=== PATIENT | male | born 1985 | race Caucasian/White ===

== ENCOUNTER 2018-11-23 08:38 | Emergency (ER) | payer SELFPAY ==
[~2018-11-23] VITALS: Ht 182.9 cm; Wt 99.8 kg
[~2018-11-23 08:38] MED LIST: AMOX500C2 PO; CYCL10TA9 PO; HYDR-2890 PO; HYDR1TAB PO; IBP800T PO; NAPR550T PO; PRD50T PO; TRAM50TA2 PO; TRM50T PO
[2018-11-23] MEDS ORDERED: HYDROcodone/APAP 5 MG/325 MG (LORTAB) TAB PO ONE (11:00)
[2018-11-23] MEDS ORDERED: CYCLOBENZAPRINE 10 MG (FLEXERIL) TAB PO SCH (11:00)
[2018-11-23] MEDS ORDERED: KETOROLAC 60 MG/2 ML VIAL IM ONE (11:00)
--- NOTE | 2018-11-23 11:21 | ED Back Pain ---
General Chief Complaint: Back Problems Stated Complaint: L LEG PAIN Nursing Triage Note: Pt c/o R lower hip/back pain with pain shooting down R leg x1 week. Pt reports being seen by chiropractor and at ED in [place]. Pt was given prednisone and pain medication w/ no relief. Nursing Sepsis Screen: No Definite Risk Source of Information: Patient Exam Limitations: No Limitations History of Present Illness Date Seen by Provider: Nov 23, 2018 Time Seen by Provider: 10:56 Initial Comments 32-year-old male who presents to the emergency room with complaints of right lower hip pain that shoots down his right leg for the past week. He has been seen by a chiropractor and lumbar and was seen and evaluated in the emergency room at [facility] and was given prednisone and muscle relaxers but has had no improvement of pain. He reports that he was at work this morning when his pain became worse. He denies loss of bowel or bladder, saddle paresthesia, or recent injury. Location: Lumbar Spine Timing/Duration: 1 Week Modifying Factors: Worse With Movement Associated Symptoms: lower back pain Allergies and Home Medications Allergies Coded Allergies: No Known Drug Allergies (Unverified , 06/04/11) Home Medications Cyclobenzaprine HCl 10 Mg Tablet, 10 MG PO Q8H PRN for SPASMS Prescribed by: VALDO MARTINEZ on 11/23/18 1149 Hydrocodone Bit/Acetaminophen 1 Tab Tab, 1 EACH PO Q4-6HR PRN for PAIN-MODERATE Prescribed by: VALDO MARTINEZ on 11/23/18 1149 Tramadol Hcl 50 Mg Tablet, 50 MG PO Q4H PRN for PAIN Prescribed by: EVGENY BROOKS on 02/24/14 1406 Patient Home Medication List Home Medication List Reviewed: Yes Review of Systems Constitutional: see HPI; No chills, No fever Musculoskeletal: see HPI, joint pain (right hip pain) All Other Systems Reviewed Negative Unless Noted: Yes Past Ecywuyb-Rtfodh-Njmnbm Hx Past Med/Social Hx: Reviewed Nursing Past Med/Soc Hx Patient Social History Alcohol Use: Denies Use Recreational Drug Use: No Smoking Status: Never a Smoker Type Used: Smokeless Tobacco Recent Foreign Travel: No Contact w/Someone Who Travel: No Recent Infectious Disease Expo: No Recent Hopitalizations: No Immunizations Up To Date Tetanus Booster (TDap): Less than 5yrs Date of Influenza Vaccine: Mar 28, 2012 Seasonal Allergies Seasonal Allergies: No Past Medical History Surgeries: Yes (L5-S1) Respiratory: No Cardiac: No Neurological: No Reproductive Disorders: No Sexually Transmitted Disease: No HIV/AIDS: No Gastrointestinal: No Musculoskeletal: Yes (R ANKLE) Fractures Endocrine: No HEENT: No Cancer: No Psychosocial: No Integumentary: No Blood Disorders: No Adverse Reaction/Blood Tranf: No Family Medical History Reviewed Nursing Family Hx No Pertinent Family Hx Physical Exam Vital Signs Vital Signs - First Documented 11/23/18 09:48 Temp 97.9 Pulse 87 Resp 18 B/P (MAP) 124/97 (106) Pulse Ox 98 O2 Delivery Room Air Capillary Refill : Less Than 3 Seconds Height, Weight, BMI Height: 6'0" Weight: 220lbs. oz. 99.521543mb; 29.83 BMI Method:Stated General Appearance: No Apparent Distress, WD/WN Cardiovascular: Regular Rate, Rhythm, No Edema, No Gallop, No JVD, No Murmur, Normal Peripheral Pulses Respiratory: Chest Non Tender, Lungs Clear, Normal Breath Sounds, No Accessory Muscle Use, No Respiratory Distress, Accessory Muscle Use Back: Normal Inspection, No CVA Tenderness, No Vertebral Tenderness Extremity: Normal Capillary Refill Neurologic/Psychiatric: Alert, Oriented x3, Normal Mood/Affect Skin: Normal Color, Warm/Dry Progress/Results/Core Measures Results/Orders My Orders Orders - VALDO MARTINEZ Cyclobenzaprine Tablet (Flexeril Tablet) (11/23/18 11:00) Ketorolac Injection (Toradol Injection) (11/23/18 11:00) Hydrocodone/Apap 5/325 Tablet (Lortab 5 (11/23/18 11:00) Medications Given in ED Vital Signs/I&O 11/23/18 11/23/18 09:48 11:54 Temp 97.9 98.6 Pulse 87 88 Resp 18 16 B/P (MAP) 124/97 (106) 170/80 (110) Pulse Ox 98 97 O2 Delivery Room Air Blood Pressure Mean: 106 Progress Progress Note : Time: 11:47 Progress Note I have seen and evaluated the patient. His pain has improved at this time. He agrees with plan of care, plans for discharge, plans for follow-up, return precautions were given. Departure Impression Primary Impression: Sciatic nerve pain Disposition: 01 HOME, SELF-CARE Condition: Stable/Unchanged Departure-Patient Inst. Decision time for Depature: 11:47 Referrals: NO,LOCAL PHYSICIAN (PCP/Family) Primary Care Physician Patient Instructions: Sciatica Exercises, Sciatica Add. Discharge Instructions: Take medications as directed. Follow-up with your primary care provider within 1 week for recheck. Return back to the emergency room for worsening symptoms or concerns as needed. All discharge instructions reviewed with patient and/or family. Voiced understanding. Scripts Hydrocodone Bit/Acetaminophen (Hydrocodone/Acetaminophen 5/325mg Tablet) 1 Tab Tab 1 EACH PO Q4-6HR PRN for PAIN-MODERATE MDD 10, #10 TAB Prov: VALDO MARTINEZ 11/23/18 Cyclobenzaprine HCl (Cyclobenzaprine HCl) 10 Mg Tablet 10 MG PO Q8H PRN for SPASMS, #15 TAB 0 Refills Prov: VALDO MARTINEZ 11/23/18 VALDO MARTINEZ Nov 23, 2018 11:21
[2018-11-23] MEDS ORDERED: CYCL10TA9 PO (11:49)
[2018-11-23] MEDS ORDERED: ACHD5005 PO (11:49)
[2018-11-23 11:54] VITALS: BP 170/80
== END 2018-11-23 11:56 | disposition home or self-care (01) ==
LOC: ER 08:38 → EDUNIT# 08:38 → ER 11:56
DX: M54.41 Lumbago with sciatica, right side (principal); Z98.1 Arthrodesis status

== ENCOUNTER 2018-12-03 16:27 | Emergency (ER) | payer BC, OTHER ==
[~2018-12-03] VITALS: Ht 182.9 cm; Wt 104.3 kg
[~2018-12-03 16:27] MED LIST changes: +ACHD5005 PO
--- OUTSIDE RECORDS SUMMARY | 2018-12-03 16:32 | XMS REPORT | Continuity of Care Document ---
Author Organization Unknown Address Unknown Allergies Active Description Code Type Severity Reaction Onset Reported/Identified Relationship to Patient Clinical Status Yes No Known Drug Allergies [id number] Drug Allergy Unknown N/A 06/04/2011 Medications There is no data. Problems Date Dx Coded Attending Type Code Diagnosis Diagnosed By 06/04/2011 Ot 831.04 06/04/2011 Ot 959.2 06/04/2011 Ot E000.8 06/04/2011 Ot E007.0 06/04/2011 Ot E849.4 06/04/2011 Ot E917.0 06/23/2011 Ot 521.00 06/23/2011 Ot 525.9 09/13/2011 Ot 521.00 09/13/2011 Ot 525.9 01/05/2012 Ot 521.00 01/05/2012 Ot 525.9 07/20/2012 Ot 724.1 07/20/2012 Ot 847.1 07/20/2012 Ot E000.8 07/20/2012 Ot E849.0 07/20/2012 Ot E927.0 02/01/2013 EVGENY MAGAÑA Ot 840.9 02/01/2013 EVGENY MAGAÑA Ot 959.2 02/01/2013 EVGENY MAGAÑA Ot E000.8 02/01/2013 EVGENY MAGAÑA Ot E005.3 02/01/2013 EVGENY MAGAÑA Ot E849.0 02/01/2013 EVGENY MAGAÑA Ot E884.9 02/24/2014 EVGENY MAGAÑA Ot 923.10 02/24/2014 EVGENY MAGAÑA Ot 959.3 02/24/2014 EVGENY MAGAÑA Ot E000.8 02/24/2014 EVGENY MAGAÑA Ot E849.0 02/24/2014 EVGENY MAGAÑA Ot E917.9 02/24/2014 EVGENY MAGAÑA Ot W51.xxxA 02/24/2014 EVGENY MAGAÑA Ot Y92.099 Procedures There is no data. Results There is no data. Encounters ACCT No. Visit Date/Time Discharge Status Pt. Type Provider Facility Loc./Unit Complaint [id number] 02/24/2014 13:20:00 02/24/2014 14:25:00 DIS Emergency EVGENY MAGAÑA [facility] [id number] 02/01/2013 20:27:00 02/01/2013 22:15:00 DIS Emergency EVGENY MAGAÑA [facility] ER [id number] 07/20/2012 10:17:00 Document Registration [id number] 01/05/2012 00:12:00 Document Registration [id number] 09/13/2011 20:23:00 Document Registration [id number] 06/23/2011 18:57:00 Document Registration [id number] 06/04/2011 19:09:00 Document Registration
[2018-12-03 16:53] LABS: BILIRUBIN,URINE NEGATIVE (NEGATIVE); CLARITY,URINE SLIGHTLY CLOUDY; COLOR,URINE YELLOW; GLUCOSE, URINE (UA) NEGATIVE (NEGATIVE); KETONES,URINE NEGATIVE (NEGATIVE); LEUKOCYTE ESTERASE ,URINE NEGATIVE (NEGATIVE); NITRITE,URINE NEGATIVE (NEGATIVE); PH,URINE 8 (5-9); PROTEIN,URINE NEGATIVE (NEGATIVE); UROBILINOGEN,URINE NORMAL (NORMAL)
--- NOTE | 2018-12-03 16:58 | ED Back Pain ---
General Chief Complaint: Back Problems Stated Complaint: LOWER BACK PAIN Nursing Triage Note: low back pain worsening in the last few days. denies numbness or tingling. denies loss of bowel or bladder. pt denies any initial injury. pt history of L5-S1 surgery. Nursing Sepsis Screen: No Definite Risk Source of Information: Patient, Old Records Exam Limitations: No Limitations History of Present Illness Date Seen by Provider: December 03, 2018 Time Seen by Provider: 16:40 Initial Comments This 32-year-old woman presents to the emergency room with complaints of lower back pain, more predominant on the right. This is in the SI joint region. He has had problems with back pain in the past and has had surgery at L5-S1. He was seen in the ER on November 23 for similar symptoms. He was treated with Toradol, Norflex, and hydrocodone. He had a couple days of relief after that. Pain returned and became more intensely exacerbated over the past 2 or 3 days. He also complains of pain now radiating into the testicle on the right. The testicles also tender to the touch. He denies any saddle paresthesia. He has had some darker urine recently as well. He has no history of kidney stones. He took ibuprofen 800 mg around noon which did not improve his pain. On his prior visit he had sciatic symptoms down the right leg. Those are absent today. 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 He denies any abdominal pain. He denies dysuria or penile drainage. He does have some urinary hesitance. Allergies and Home Medications Allergies Coded Allergies: No Known Drug Allergies (Unverified , 06/04/11) Home Medications Cyclobenzaprine HCl 10 Mg Tablet, 10 MG PO Q8H PRN for SPASMS Prescribed by: VALDO MARTINEZ on 11/23/18 1149 Cyclobenzaprine HCl 10 Mg Tablet, 10 MG PO Q8H PRN for SPASMS Prescribed by: DALE FLYNN on 12/03/18 1756 Hydrocodone Bit/Acetaminophen 1 Tab Tab, 1 EACH PO Q4-6HR PRN for PAIN-MODERATE Prescribed by: VALDO MARTINEZ on 11/23/18 1149 Oxycodone HCl/Acetaminophen 1 Each Tablet, 1-2 TAB PO Q4H PRN for PAIN-MODERATE TO SEVERE Prescribed by: DALE FLYNN on 12/03/181755 Prednisone 20 Mg Tab, 40 MG PO DAILY Prescribed by: DALE FLYNN on 12/03/181755 Tramadol Hcl 50 Mg Tablet, 50 MG PO Q4H PRN for PAIN Prescribed by: EVGENY BROOKS on 02/24/14 1406 Patient Home Medication List Home Medication List Reviewed: Yes Review of Systems Constitutional: no symptoms reported EENTM: no symptoms reported Respiratory: no symptoms reported Cardiovascular: no symptoms reported Gastrointestinal: no symptoms reported Genitourinary: see HPI Musculoskeletal: see HPI Skin: no symptoms reported Psychiatric/Neurological: No Symptoms Reported Past Nxhnjwx-Fpzvya-Wagoyq Hx Past Med/Social Hx: Reviewed and Corrections made Patient Social History Alcohol Use: Denies Use Recreational Drug Use: No Type Used: Smokeless Tobacco Recent Foreign Travel: No Contact w/Someone Who Travel: No Recent Infectious Disease Expo: No Recent Hopitalizations: No Immunizations Up To Date Tetanus Booster (TDap): Less than 5yrs Date of Influenza Vaccine: Mar 28, 2012 Seasonal Allergies Seasonal Allergies: No Past Medical History Surgeries: Yes (L5-S1) Orthopedic Respiratory: No Cardiac: No Neurological: No Reproductive Disorders: No Sexually Transmitted Disease: No HIV/AIDS: No Genitourinary: No Gastrointestinal: No Musculoskeletal: Yes (R ANKLE) Chronic Back Pain, Fractures Endocrine: No HEENT: No Cancer: No Psychosocial: No Integumentary: No Blood Disorders: No Adverse Reaction/Blood Tranf: No Family Medical History No Pertinent Family Hx Physical Exam Vital Signs Vital Signs - First Documented 12/03/18 16:32 Temp 98.4 Pulse 82 Resp 16 B/P (MAP) 160/91 (114) Pulse Ox 97 O2 Delivery Room Air Capillary Refill : Less Than 3 Seconds Height, Weight, BMI Height: 6'0" Weight: 230lbs. oz. 104.136661qc; 29.83 BMI Method:Stated General Appearance: WD/WN, Moderate Distress HEENT: PERRL/EOMI, Normal ENT Inspection Neck: Normal Inspection Cardiovascular: Regular Rate, Rhythm, No Edema, No Murmur Respiratory: Lungs Clear, Normal Breath Sounds, No Accessory Muscle Use, No Respiratory Distress Gastrointestinal: Normal Bowel Sounds, Non Tender, Soft Genital/Rectal: Normal Genital Exam, Tenderness (right testicle) Back: Other (surgical scar over L5. Minimal tenderness in the right SI region. ) Neurologic/Psychiatric: Alert, Oriented x3, No Motor/Sensory Deficits, Normal Mood/Affect, magnetic resonance technologist II-XII Norm as Tested Skin: Normal Color, Warm/Dry Progress/Results/Core Measures Results/Orders Lab Results Laboratory Tests Test 12/03/18 16:47 Range/Units Urine Color YELLOW Urine Clarity SLIGHTLY CLOUDY Urine pH 8 5-9 Urine Specific [place] 1.010 L 1.016-1.022 Urine Protein NEGATIVE NEGATIVE Urine Glucose (UA) NEGATIVE NEGATIVE Urine Ketones NEGATIVE NEGATIVE Urine Nitrite NEGATIVE NEGATIVE Urine Bilirubin NEGATIVE NEGATIVE Urine Urobilinogen NORMAL NORMAL MG/DL Urine Leukocyte Esterase NEGATIVE NEGATIVE Urine RBC (Auto) NEGATIVE NEGATIVE Urine RBC RARE /HPF Urine WBC 0-2 /HPF Urine Crystals PRESENT H /LPF Urine Amorphous Sediment LARGE REYNA PHOSPHATE H /LPF Urine Bacteria NEGATIVE /HPF Urine Casts NONE /LPF Urine Mucus NEGATIVE /LPF Urine Culture Indicated NO My Orders Orders - DALE DIAZ MD Ua Culture If Indicated (12/03/18 16:40) Us Scrotum (Testicle) [id number] (12/03/18 16:47) Ketorolac Injection (Toradol Injection) (12/03/18 17:00) Tramadol Tablet (Ultram Tablet) (12/03/18 18:00) Medications Given in ED Current Medications Medications Dose Ordered Sig/Lamine Route Start Time Stop Time Status Last Admin Dose Admin Ketorolac Tromethamine 30 mg ONCE ONCE IM 12/03/18 17:00 12/03/18 17:01 DC 12/03/18 16:54 30 MG Tramadol HCl 50 mg ONCE ONCE PO 12/03/18 18:00 12/03/18 18:01 DC 12/03/18 18:06 50 MG Vital Signs/I&O 12/03/18 12/03/18 16:32 18:17 Temp 98.4 98.6 Pulse 82 86 Resp 16 18 B/P (MAP) 160/91 (114) 148/99 (115) Pulse Ox 97 98 O2 Delivery Room Air Blood Pressure Mean: 114 Progress Progress Note #1: Time: 16:58 Progress Note Patient seen and examined. Toradol ordered for treatment of pain. UA and scrotal ultrasound are pending. Progress Note #2: Time: 18:15 Progress Note Scrotal ultrasound was unremarkable. Urine showed no evidence of infection or hematuria to suggest kidney stone. Patient states this pain feels very similar to when he required surgery. Toradol was given but did not really improve his pain. Ultram was given prior to departure. I suspect the scrotal pain is radicular in nature. I asked him to elaborate on his urinary hesitance. He states it is only a few seconds of hesitance and he is able to empty out his entire bladder. Diagnostic Imaging Diagonstic Imaging: Ultrasound Plain Films/CT/US/NM/MRI: other (scrotum) Comments NAME: KYLER STACY MED REC#: [id number] PT STATUS: REG ER : 1985 PHYSICIAN: DALE DIAZ MD ADMIT DATE: 12/03/18/ER Draft Date of Exam:12/03/18 US SCROTUM (Testicle) [id number] INDICATION: Pain COMPARISON: None available TECHNIQUE: Scrotal ultrasound with duplex interrogation was performed on 12/03/2018. FINDINGS: The right testicle measures 4.8 x 2.1 x 3.6 cm. The left testicle measures 5.0 x 2.6 x 3.3 cm. The bilateral testicles maintain a homogeneous echotexture without intratesticular mass. Symmetric vascular flow noted within the bilateral testicles. The bilateral epididymides unremarkable. No significant hydrocele or varicocele. IMPRESSION: Unremarkable examination. Dictated on workstation # [id number] Dict: 12/03/18 1725 Trans: 12/03/18 1729 [facility] [id number] Interpreted by: KRISTIN JENNINGS MD Departure Impression Primary Impression: Low back pain Qualified Codes: M54.5 - Low back pain Additional Impression: Pain in scrotum or testicle Disposition: 01 HOME, SELF-CARE Condition: Stable Departure-Patient Inst. Referrals: NO,LOCAL PHYSICIAN (PCP/Family) Primary Care Physician Patient Instructions: Low Back Pain in Adults Add. Discharge Instructions: Take ibuprofen up to 600 mg every 6 hours as needed for pain. Add Percocet for pain not controlled by ibuprofen. Use cyclobenzaprine as prescribed for muscle spasms. Use prednisone as prescribed to help reduce inflammation. Take it early in the day with food or milk to avoid sleep and stomach problems. Take your first dose of prednisone tonight. Return to the ER if you have worsening symptoms, especially if you develop weakness in your legs, numbness or tingling in your genital area, intensifying pain despite treatment, difficulty controlling your bowels or your bladder, etc. Gentle heat on your lower back may be helpful. Call your spine surgeon tomorrow morning for follow-up as soon as possible. All discharge instructions reviewed with patient and/or family. Voiced understanding. Scripts Prednisone (Prednisone) 20 Mg Tab 40 MG PO DAILY, #8 TAB 0 Refills Prov: DALE DIAZ MD 12/03/18 Oxycodone HCl/Acetaminophen (Percocet 5-325 mg Tablet) 1 Each Tablet 1-2 TAB PO Q4H PRN for PAIN-MODERATE TO SEVERE MDD 6 TABS, #20 TAB Prov: DALE DIAZ MD 12/03/18 Cyclobenzaprine HCl (Cyclobenzaprine HCl) 10 Mg Tablet 10 MG PO Q8H PRN for SPASMS, #20 TAB 0 Refills Prov: DALE DIAZ MD 12/03/18 Work/School Note: Work Release Form Date Seen in the Emergency Department: December 03, 2018 Return to Work: December 07, 2018 Other Restrictions Listed Below: Increase level of activity as pain allows. Reduce lifting/pulling if pain Copy Copies To 1: AKBAR BURNETT MD, JOSHUA T MD December 03, 2018 16:58
[2018-12-03 17:00] LABS: BACTERIA,URINE NEGATIVE /HPF; RBC,URINE RARE /HPF; WBC,URINE 0-2 /HPF
[2018-12-03] MEDS ORDERED: KETOROLAC 30 MG/ML VIAL IM ONE (17:00)
[2018-12-03 17:01] LABS: AMORPHOUS SEDIMENT,UR LARGE AMOR PHOSPHATE /LPF
--- NOTE | 2018-12-03 17:29 | Diagnostic Imaging Report ---
INDICATION: Pain COMPARISON: None available TECHNIQUE: Scrotal ultrasound with duplex interrogation was performed on 12/03/2018. FINDINGS: The right testicle measures 4.8 x 2.1 x 3.6 cm. The left testicle measures 5.0 x 2.6 x 3.3 cm. The bilateral testicles maintain a homogeneous echotexture without intratesticular mass. Symmetric vascular flow noted within the bilateral testicles. The bilateral epididymides unremarkable. No significant hydrocele or varicocele. IMPRESSION: Unremarkable examination. Dictated by: Dictated on workstation # [id number]
[2018-12-03] MEDS ORDERED: CYCL10TA9 PO (17:56)
[2018-12-03] MEDS ORDERED: PRD20T PO (17:56)
[2018-12-03] MEDS ORDERED: OXYC1TAB87 PO (17:56)
[2018-12-03 18:17] VITALS: BP 148/99
== END 2018-12-03 18:18 | disposition home or self-care (01) ==
LOC: EDUNIT# 16:27 → ER 16:28
DX: M54.5 Low back pain (principal); N50.82 Scrotal pain; Z79.52 Long term (current) use of systemic steroids
CPT/HCPCS: 76870; 81000; 96372

== ENCOUNTER 2019-06-28 16:15 | Emergency (ER) | payer BC ==
[~2019-06-28] VITALS: Ht 182 cm; Wt 98.7 kg
[~2019-06-28 16:15] MED LIST changes: +OXYC1TAB87 PO; +PRD20T PO
[2019-06-28] MEDS ORDERED: HYDROcodone/APAP 5 MG/325 MG (LORTAB) TAB PO ONE (17:45)
[2019-06-28] MEDS ORDERED: ORPHENADRINE 60 MG/2 ML (NORFLEX) AMP IM ONE (17:45)
--- NOTE | 2019-06-28 17:47 | ED Back Pain ---
General Chief Complaint: Back Problems Stated Complaint: BACK PAIN Nursing Triage Note: Patient ambulatory to ER FT1 with complaint of lower back pain on the right side radiating into to the right leg. Patient complains of numbness to right toes. Patient states two weeks ago he injured his back while lifting heavy cinder blocks. He states he took off several weeks from work and has been taking Naproxen and applying ice and heat without relief. Patient has a previous history of back surgery at [facility] for herniated disks. Nursing Sepsis Screen: No Definite Risk History of Present Illness Date Seen by Provider: Jun 28, 2019 Time Seen by Provider: 17:20 Initial Comments 33-year-old male presents for a 2 week history of back and right leg pain. The patient was lifting bricks in his backyard, had immediate onset of low back pain. He tried a two-week bed rest and limited activity taking Naprosyn and Tylenol with no improvement in his symptoms. He's been trying heat and ice on his back with no improvement. He's had previous surgery on the lumbar spine by Dr. Mehta approximately 4 years ago at L5-S1. He denies any bowel or bladder retention or incontinence. Today he has had ibuprofen 800 mg twice. He rates his pain at a 9/10. 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 Location: Lumbar Spine Timing/Duration: Other (2 weeks) Associated Symptoms: muscle spasms, tingling in legs/feet (Right toes), lower back pain; No loss of bladder control, No loss of bowel control Allergies and Home Medications Allergies Coded Allergies: No Known Drug Allergies (Unverified , 06/04/11) Home Medications Cyclobenzaprine HCl 10 Mg Tablet, 10 MG PO Q8H PRN for SPASMS Prescribed by: VALDO MARTINEZ on 11/23/18 1149 Cyclobenzaprine HCl 10 Mg Tablet, 10 MG PO Q8H PRN for SPASMS Prescribed by: DALE FLYNN on 12/03/18 1756 Cyclobenzaprine HCl 10 Mg Tablet, 10 MG PO Q8H PRN for SPASMS Prescribed by: BELEN DE LA ROSA on 06/28/19 1839 Hydrocodone Bit/Acetaminophen 1 Tab Tab, 1 EACH PO Q4-6HR PRN for PAIN-MODERATE Prescribed by: VALDO MARTINEZ on 11/23/18 1149 Hydrocodone Bit/Acetaminophen 1 Tab Tab, 1 EACH PO Q6H PRN for PAIN-MODERATE Prescribed by: BELEN DE LA ROSA on 06/28/191818 Oxycodone HCl/Acetaminophen 1 Each Tablet, 1-2 TAB PO Q4H PRN for PAIN-MODERATE TO SEVERE Prescribed by: DALE FLYNN on 12/03/181755 Prednisone 20 Mg Tab, 40 MG PO DAILY Prescribed by: DALE FLYNN on 12/03/181755 Prednisone 20 Mg Tab, 40 MG PO DAILY Prescribed by: BELEN DE LA ROSA on 06/28/191818 Tramadol Hcl 50 Mg Tablet, 50 MG PO Q4H PRN for PAIN Prescribed by: EVGENY BROOKS on 02/24/14 1406 Patient Home Medication List Home Medication List Reviewed: Yes Review of Systems Constitutional: no symptoms reported, see HPI Musculoskeletal: see HPI, back pain All Other Systems Reviewed Negative Unless Noted: Yes Past Ialdwms-Cypchl-Twraan Hx Past Med/Social Hx: Reviewed Nursing Past Med/Soc Hx Patient Social History Alcohol Use: Rarely Uses Recreational Drug Use: No Smoking Status: Current Everyday Smoker Type Used: Cigarettes, Smokeless Tobacco 2nd Hand Smoke Exposure: Yes Recent Foreign Travel: No Contact w/Someone Who Travel: No Recent Infectious Disease Expo: No Recent Hopitalizations: No Physical Abuse: No Sexual Abuse: No Mistreated: No Fear: No Immunizations Up To Date Tetanus Booster (TDap): Less than 5yrs PED Vaccines UTD: Yes Date of Influenza Vaccine: Mar 28, 2012 Seasonal Allergies Seasonal Allergies: No Past Medical History Surgeries: Yes (L5-S1) Orthopedic Respiratory: No Cardiac: No Neurological: No Reproductive Disorders: No Sexually Transmitted Disease: No HIV/AIDS: No Genitourinary: No Gastrointestinal: No Musculoskeletal: Yes (R ANKLE) Chronic Back Pain, Fractures Endocrine: No HEENT: No Cancer: No Psychosocial: No Integumentary: No Blood Disorders: No Adverse Reaction/Blood Tranf: No Family Medical History No Pertinent Family Hx Physical Exam Vital Signs Vital Signs - First Documented 06/28/19 16:32 Temp 36.8 Pulse 87 Resp 20 B/P (MAP) 118/84 (95) Pulse Ox 99 O2 Delivery Room Air Capillary Refill : Less Than 3 Seconds Height, Weight, BMI Height: 6'0" Weight: 230lbs. oz. 104.168669qt; 29.00 BMI Method:Stated General Appearance: No Apparent Distress, WD/WN Neck: Full Range of Motion, Normal Inspection, Non Tender, Supple Cardiovascular: Regular Rate, Rhythm, No Edema, No Murmur, Normal Peripheral Pulses Respiratory: Chest Non Tender, Lungs Clear Back: Normal Inspection, No Vertebral Tenderness, Decreased Range of Motion (secondary to pain.), Muscle Spasm, Other (well-healed lumbar incision with no erythema or warmth. Decreased range of motion to the lumbar spine secondary to pain. Ambulates with a slightly antalgic gait secondary to back pain. Able to rise on to toes and he'll ambulate. Power V/V left L4-S1, Power IV/V L5-S1 right and V/V right L4. Positive SLR. ) Extremity: Normal Capillary Refill, Normal Inspection, Normal Range of Motion, No Calf Tenderness Neurologic/Psychiatric: Alert, Oriented x3, No Motor/Sensory Deficits Skin: Normal Color, Warm/Dry Progress/Results/Core Measures Results/Orders My Orders Orders - BELEN DE LA ROSA Lumbar Spine - 2-3 Views (06/28/19 17:42) Orphenadrine Injection (Norflex Injectio (06/28/19 17:45) Hydrocodone/Apap 5/325 Tablet (Lortab 5 (06/28/19 17:45) Medications Given in ED Current Medications Medications Dose Ordered Sig/Lamine Route Start Time Stop Time Status Last Admin Dose Admin Acetaminophen/ Hydrocodone Bitart 1 tab ONCE ONCE PO 06/28/19 17:45 06/28/19 17:46 DC 06/28/19 18:01 1 TAB Orphenadrine Citrate 60 mg ONCE ONCE IM 06/28/19 17:45 06/28/19 17:46 DC 06/28/19 18:02 60 MG Vital Signs/I&O 06/28/19 06/28/19 16:32 18:28 Temp 36.8 36.8 Pulse 87 87 Resp 20 20 B/P (MAP) 118/84 (95) 118/84 (95) Pulse Ox 99 99 O2 Delivery Room Air Blood Pressure Mean: 95 POS Progress Progress Note : Time: 17:20 Progress Note Patient seen and evaluated, will obtain x-rays and Norflex 60 mg IM for muscle spasms and hydrocodone/APAP 5/325 mg for pain. 181 patient reports some improvement in his pain. X-ray results reviewed with him. Discharge instructions and return precautions reviewed with the patient. All questions answered. Diagnostic Imaging Diagonstic Imaging: Xray Plain Films/CT/US/NM/MRI: other (lumbar spine) Comments NAME: KYLER STACY [facility] REC#: [id number] PT STATUS: REG ER : 1985 PHYSICIAN: BELEN DE LA ROSA ADMIT DATE: 06/28/19/ER Draft POSDate of Exam:06/28/19 LUMBAR SPINE - 2-3 VIEWS Clinical indications: Patient with low back pain radiating down right leg after injury while working in yard approximately 2 weeks ago. Patient has history of L5-S1 surgery approximately 6 years ago. Exam: X-ray of the lumbar spine, 3 views. Comparison: None. Findings: There is mild right curvature of the lumbar spine. There is no acute lumbar spine fracture. There appears to be mild grade 1 retrolisthesis of L5 on S1 but no pars defect is seen. There is at least moderate loss of intervertebral disc height at the L5-S1 level and mild to moderate loss of intervertebral disk height at the L4-L5 level. There is lower lumbar spine facet arthropathy. Sacroiliac joints are unremarkable. Impression: 1. There is no acute lumbar spine fracture or dislocation. 2: There is mild to moderate loss of intervertebral disc height at the L4-L5 and L5-S1 levels. If there is concern for disc herniation, then MRI of the lumbar spine would better evaluate. 3: There appears to be subtle grade 1 retrolisthesis of L5 on S1. Dictated on workstation # [id number] Dict: 06/28/19 1755 Trans: 06/28/19 1806 [facility] [id number] Interpreted by: MIRANDA MCKEE MD Electronically signed by: Departure Impression Primary Impression: Lumbar back pain Additional Impression: Lumbosacral radiculopathy at L5 Disposition: 01 HOME, SELF-CARE Condition: Improved Departure-Patient Inst. Decision time for Depature: 18:15 Referrals: NO,LOCAL PHYSICIAN (PCP/Family) Primary Care Physician Patient Instructions: Lumbar Muscle Strain (DC), Radiculopathy (DC) Add. Discharge Instructions: Continue to alternate heat and ice to your low back. Call for follow-up appointment with Dr. Mehta. See your primary care provider if symptoms worsen. Take Naprosyn 500 mg twice daily with food, use Hydrocodone/APAP for severe pain. Do not take tylenol while taking the hydrocodone/apap, as there is tylenol in this medication. Take Prednisone as directed. Apply Biofreeze or [place] to low back. Return to the emergency department for urinary or bowel incontinence or rete ntion, new acute back injuries, or other emergency concerns. All discharge instructions reviewed with patient and/or family. Voiced understanding. Scripts Cyclobenzaprine HCl (Cyclobenzaprine HCl) 10 Mg Tablet 10 MG PO Q8H PRN for SPASMS, #15 TAB 0 Refills Prov: BELEN DE LA ROSA 06/28/19 Prednisone (Prednisone) 20 Mg Tab 40 MG PO DAILY, #8 TAB 0 Refills Prov: BELEN DE LA ROSA 06/28/19 Hydrocodone Bit/Acetaminophen (Hydrocodone/Acetaminophen 5/325mg Tablet) 1 Tab Tab 1 EACH PO Q6H PRN for PAIN-MODERATE MDD 10, #20 TAB 0 Refills Prov: BELEN DE LA ROSA 06/28/19 Work/School Note: Work Release Form Date Seen in the Emergency Department: Jun 28, 2019 Return to Work: Jul 05, 2019 Restrictions: Need Release from Doctor Other Restrictions Listed Below: Needs to See Dr. Mehta. Copy Copies To 1: AKBAR MEHTA MD, AMY ARNP Jun 28, 2019 17:46 POS
--- NOTE | 2019-06-28 18:07 | Diagnostic Imaging Report ---
Clinical indications: Patient with low back pain radiating down right leg after injury while working in yard approximately 2 weeks ago. Patient has history of L5-S1 surgery approximately 6 years ago. Exam: X-ray of the lumbar spine, 3 views. Comparison: None. Findings: There is mild right curvature of the lumbar spine. There is no acute lumbar spine fracture. There appears to be mild grade 1 retrolisthesis of L5 on S1 but no pars defect is seen. There is at least moderate loss of intervertebral disc height at the L5-S1 level and mild to moderate loss of intervertebral disk height at the L4-L5 level. There is lower lumbar spine facet arthropathy. Sacroiliac joints are unremarkable. Impression: 1. There is no acute lumbar spine fracture or dislocation. 2: There is mild to moderate loss of intervertebral disc height at the L4-L5 and L5-S1 levels. If there is concern for disc herniation, then MRI of the lumbar spine would better evaluate. 3: There appears to be subtle grade 1 retrolisthesis of L5 on S1. Dictated by: Dictated on workstation # [id number]
[2019-06-28] MEDS ORDERED: PRD20T PO (18:19)
[2019-06-28] MEDS ORDERED: ACHD5005 PO (18:19)
[2019-06-28 18:28] VITALS: BP 118/84
--- NOTE | 2019-06-28 18:31 | NUR ---
Patient asked if prescription for Prednisone be called in to [facility]. Prescription called to Yolanda at [facility]. Patient states his pain has improved since the hydrocodone and IM med given.
[2019-06-28] MEDS ORDERED: CYCL10TA9 PO (18:39)
== END 2019-06-28 18:30 | disposition home or self-care (01) ==
LOC: EDUNIT# 16:15 → ER 16:16
DX: M54.17 Radiculopathy, lumbosacral region (principal); F17.210 Nicotine dependence, cigarettes, uncomplicated; Z79.52 Long term (current) use of systemic steroids; X50.1XXA Overexertion from prolonged static or awkward postures, initial encounter
CPT/HCPCS: 72100; 96372

== ENCOUNTER 2019-09-15 09:29 | Emergency (ER) | payer BC ==
[~2019-09-15] VITALS: Ht 182 cm; Wt 97.8 kg
[2019-09-15] MEDS ORDERED: ONDANSETRON 4 MG/2 ML (SDV) Z0FRAN IVP ONE (09:45)
--- NOTE | 2019-09-15 09:46 | ED Abdominal Pain ---
General Chief Complaint: Abdominal/GI Problems Stated Complaint: ABD PAIN Nursing Triage Note: ARRIVED VIA AMB TO ROOM 07 WITH COMPLAINTS OF LEFT SIDED ABD PAIN STARTING AT 0100. Sepsis Screen: No Definite Risk Source of Information: Patient Exam Limitations: No Limitations History of Present Illness Date Seen by Provider: Sep 15, 2019 Time Seen by Provider: 09:29 Initial Comments The patient presents to ER by private conveyance from work with chief complaint he woke up about 1 or 2 in the morning with some rumbling in his left side of his belly and intermittent, colicky pain. He says the pain is not worse with the drive. He says it is about a 6 out of 10 right now comes and goes. He has not taken anything for the pain. He had some loose watery stools without blood in it. Has some nausea but no vomiting. He has no history of abdominal surgeries or trauma. No fevers chills. Does not follow with a doctor take any medications or have any significant medical history that he is aware of. No cough shortness of breath. Allergies and Home Medications Allergies Coded Allergies: No Known Drug Allergies (Unverified , 06/04/11) Home Medications Ondansetron 4 Mg Tab.rapdis, 4 MG PO Q6H PRN for NAUSEA/VOMITING Prescribed by: MAHAD SIN on 09/15/19 1049 Patient Home Medication List Home Medication List Reviewed: Yes Review of Systems Review of Systems Constitutional: No chills, No diaphoresis EENTM: No Blurred Vision, No Double Vision Respiratory: Denies Cough, Denies Shortness of Air Gastrointestinal: Denies Abdomen Distended, Denies Abdominal Pain Genitourinary: Denies Burning, Denies Discharge Musculoskeletal: No back pain, No joint pain Skin: No pruritus, No rash Psychiatric/Neurological: Denies Anxiety, Denies Depressed, Denies Headache All Other Systems Reviewed Negative Unless Noted: Yes Past Xxydxfq-Uqwdoo-Qviowt Hx Patient Social History Alcohol Use: Denies Use Recreational Drug Use: No Smoking Status: Current Everyday Smoker Type Used: Cigarettes (pack per day), Smokeless Tobacco 2nd Hand Smoke Exposure: Yes Recent Foreign Travel: No Contact w/Someone Who Travel: No Recent Infectious Disease Expo: No Recent Hopitalizations: No Immunizations Up To Date Tetanus Booster (TDap): Less than 5yrs PED Vaccines UTD: Yes Date of Influenza Vaccine: Mar 28, 2012 Seasonal Allergies Seasonal Allergies: No Past Medical History Surgeries: Yes (L5-S1) Orthopedic Respiratory: No Cardiac: No Neurological: No Reproductive Disorders: No Sexually Transmitted Disease: No HIV/AIDS: No Genitourinary: No Gastrointestinal: No Musculoskeletal: Yes (R ANKLE) Chronic Back Pain, Fractures Endocrine: No HEENT: No Cancer: No Psychosocial: No Integumentary: No Blood Disorders: No Adverse Reaction/Blood Tranf: No Family Medical History No Pertinent Family Hx Physical Exam Vital Signs Vital Signs - First Documented 09/15/19 09:33 Temp 36.6 Pulse 93 Resp 16 B/P (MAP) 132/89 (103) Pulse Ox 97 O2 Delivery Room Air Capillary Refill : Less Than 3 Seconds Height/Weight/BMI Height: 6'0" Weight: 230lbs. oz. 104.532133mf; 29.00 BMI Method:Stated General Appearance: WD/WN, mild distress HEENT: PERRL/EOMI, pharynx normal Respiratory: lungs clear, normal breath sounds, no respiratory distress, no accessory muscle use Cardiovascular: normal peripheral pulses, regular rate, rhythm Peripheral Pulses: 2+ Radial Pulses (R), 2+ Radial Pulses (L) Gastrointestinal: normal bowel sounds, soft; No rebound; tenderness (. Mild left lower quadrant tenderness), other (negative for Rovsing sign, psoas sign or Anton's sign. No pain or rebound tenderness over McBurney's point. Negative for mesenteric signs.) Extremities: normal range of motion, normal inspection, normal capillary refill Neurologic/Psychiatric: alert, normal mood/affect, oriented x 3 Skin: normal color, warm/dry Progress/Results/Core Measures Results/Orders Lab Results Laboratory Tests Test 09/15/19 10:00 09/15/19 10:12 Range/Units Urine Color YELLOW Urine Clarity CLEAR Urine pH 5.5 5-9 Urine Specific [place] 1.025 H 1.016-1.022 Urine Protein NEGATIVE NEGATIVE Urine Glucose (UA) NEGATIVE NEGATIVE Urine Ketones NEGATIVE NEGATIVE Urine Nitrite NEGATIVE NEGATIVE Urine Bilirubin NEGATIVE NEGATIVE Urine Urobilinogen 0.2 < = 1.0 MG/DL Urine Leukocyte Esterase NEGATIVE NEGATIVE Urine RBC (Auto) NEGATIVE NEGATIVE Urine RBC 0-2 /HPF Urine WBC RARE /HPF Urine Squamous Epithelial Cells NONE /HPF Urine Crystals NONE /LPF Urine Bacteria NEGATIVE /HPF Urine Casts NONE /LPF Urine Mucus SMALL H /LPF Urine Culture Indicated NO White Blood Count 11.9 H 4.3-11.0 10^3/uL Red Blood Count 4.99 4.35-5.85 10^6/uL Hemoglobin 15.4 13.3-17.7 G/DL Hematocrit 44 40-54 % Mean Corpuscular Volume 89 80-99 FL Mean Corpuscular Hemoglobin 31 25-34 PG Mean Corpuscular Hemoglobin Concent 35 32-36 G/DL Red Cell Distribution Width 12.6 10.0-14.5 % Platelet Count 278 130-400 10^3/uL Mean Platelet Volume 10.9 H 7.4-10.4 FL Neutrophils (%) (Auto) 78 H 42-75 % Lymphocytes (%) (Auto) 12 12-44 % Monocytes (%) (Auto) 9 0-12 % Eosinophils (%) (Auto) 1 0-10 % Basophils (%) (Auto) 0 0-10 % Neutrophils # (Auto) 9.3 H 1.8-7.8 X 10^3 Lymphocytes # (Auto) 1.4 1.0-4.0 X 10^3 Monocytes # (Auto) 1.1 H 0.0-1.0 X 10^3 Eosinophils # (Auto) 0.1 0.0-0.3 10^3/uL Basophils # (Auto) 0.0 0.0-0.1 10^3/uL Sodium Level 140 135-145 MMOL/L Potassium Level 4.3 3.6-5.0 MMOL/L Chloride Level 106 98-107 MMOL/L Carbon Dioxide Level 22 21-32 MMOL/L Anion Gap 12 5-14 MMOL/L Blood Urea Nitrogen 14 7-18 MG/DL Creatinine 0.96 0.60-1.30 MG/DL Estimat Glomerular Filtration Rate > 60 BUN/Creatinine Ratio 15 Glucose Level 98 70-105 MG/DL Calcium Level 9.4 8.5-10.1 MG/DL Corrected Calcium 9.1 8.5-10.1 MG/DL Total Bilirubin 0.5 0.1-1.0 MG/DL Aspartate Amino Transf (AST/SGOT) 19 5-34 U/L Alanine Aminotransferase (ALT/SGPT) 23 0-55 U/L Alkaline Phosphatase 92 40-136 U/L C-Reactive Protein High Sensitivity 0.39 0.00-0.50 MG/DL Total Protein 7.3 6.4-8.2 GM/DL Albumin 4.4 3.2-4.5 GM/DL Lipase 17 8-78 U/L My Orders Orders - MAHAD SIN Ua Culture If Indicated (09/15/19 09:40) Ondansetron Injection (Zofran Injectio (09/15/19 09:45) Cbc With Automated Diff (09/15/19 09:40) Comprehensive Metabolic Panel (09/15/19 09:40) Hs C Reactive Protein (09/15/19 09:40) Lipase (09/15/19 09:40) Ed Iv/Invasive Line Start (09/15/19 09:51) Ns Iv 1000 Ml (Sodium Chloride 0.9%) (09/15/19 09:51) Ketorolac Injection (Toradol Injection) (09/15/19 10:45) Fentanyl Injection (Sublimaze Injection (09/15/19 11:30) Ct Abdomen/Pelvis W (09/15/19 11:16) Iohexol Injection (Omnipaque 350 Mg/Ml 1 (09/15/19 11:30) Received Contrast (Hold Metformin- Contr (09/15/19 11:30) Ns (Ivpb) (Sodium Chloride 0.9% Ivpb Bag (09/15/19 11:30) Medications Given in ED Current Medications Medications Dose Ordered Sig/Lamine Route Start Time Stop Time Status Last Admin Dose Admin Fentanyl Citrate 50 mcg ONCE ONCE IVP 09/15/19 11:30 09/15/19 11:31 DC 09/15/19 11:59 50 MCG Iohexol 100 ml ONCE ONCE IV 09/15/19 11:30 09/15/19 11:31 DC 09/15/19 12:26 99 ML Ketorolac Tromethamine 30 mg ONCE ONCE IVP 09/15/19 10:45 09/15/19 10:46 DC 09/15/19 10:51 30 MG Ondansetron HCl 4 mg ONCE ONCE IVP 09/15/19 09:45 09/15/19 09:46 DC 09/15/19 10:07 4 MG Sodium Chloride 100 ml ONCE ONCE IV 09/15/19 11:30 09/15/19 11:31 DC 09/15/19 12:26 80 ML Vital Signs/I&O 09/15/19 09:33 Temp 36.6 Pulse 93 Resp 16 B/P (MAP) 132/89 (103) Pulse Ox 97 O2 Delivery Room Air Blood Pressure Mean: 103 Progress Progress Note #1: Time: 10:03 Progress Note Benign abdominal exam. Vital signs are normal but heart rate is in the 90s. No cough or a story symptoms to suggest influenza. Most likely would be a viral gastroenteritis. We'll obtain some basic labs and urinalysis to rule out a more dangerous pathology such as bacterial colitis, appendicitis, etc. Progress Note #2: Time: 10:45 Progress Note The patient requested something for pain so we gave him 30 mg of Toradol IV. He does have a slowly mounting marginal white count with left shift giving him an Michaud score of 4 points. Still suspect since this is early that this is more likely a viral gastroenteritis and we will recommend watchful waiting with treatment of symptoms unless his pain is not controlled with Toradol. CRP may not elevate for the first 12 hours of a significant bacterial infection. Michaud score 4 points; Unlikely appendicitis by the Michaud Score. Progress Note #3: Time: 11:21 Progress Note After the Toradol the patient's pain has not improved. His nausea is gone. Similar abdominal exam with tenderness in the left lower quadrant and left upper quadrant. Plan on obtaining a CT with IV contrast given him 50 g of fentanyl IV. Progress Note #4: Time: 12:44 Progress Note Repeat examination the patient's pain is nearly gone. He has a benign abdominal exam. CT is unremarkable. We have given him return precautions. Diagnostic Imaging Diagonstic Imaging: CT Plain Films/CT/US/NM/MRI: abdomen, pelvis Comments NAME: KYLER STACY [facility] REC#: [id number] PT STATUS: REG ER : 1985 PHYSICIAN: MAHAD SIN MD ADMIT DATE: 09/15/19/ER Signed Date of Exam:09/15/19 CT ABDOMEN/PELVIS W PROCEDURE: CT abdomen and pelvis with contrast. TECHNIQUE: Multiple contiguous axial images were obtained through the abdomen and pelvis after administration of intravenous contrast. Auto Exposure Controls were utilized during the CT exam to meet ALARA standards for radiation dose reduction. INDICATION: Left upper quadrant pain and diarrhea Lung bases are clear. Liver appears normal. Gallbladder is present. Pancreas is normal. Spleen is not enlarged. Kidneys and adrenals appear normal. Large and small small intestine appear normal. The appendix is normal. There is no intraperitoneal free air or free fluid. Urinary bladder is normal. IMPRESSION: Negative CT abdomen and pelvis Dictated by: Dictated on workstation # [id number] Dict: 09/15/19 1233 Trans: 09/15/19 1235 TB [id number] Interpreted by: JOEL LOZANO MD Electronically signed by: JOEL LOZANO MD 09/15/19 1235 Reviewed: Reviewed by Me Departure Impression Primary Impression: Gastroenteritis and colitis, viral Disposition: HOME, SELF-CARE Condition: Stable Departure-Patient Inst. Decision time for Depature: 12:39 Referrals: NO,LOCAL PHYSICIAN (PCP/Family) Primary Care Physician Patient Instructions: Viral Gastroenteritis, Adult (DC) Add. Discharge Instructions: Drink plenty of fluids. Ondansetron under the tongue every 6 hours as needed for nausea or vomiting. Do not use any Imodium, loperamide or other antidiarrheals for the first 24-48 hours. Afterwards if you're still having diarrhea or having difficulty keeping fluids in faster than you're losing it then it would be reasonable to start with 2 tablets of loperamide followed by one tablet every 4 hours afterwards if you're still having watery, loose stools. If your symptoms persist for more than 3-5 days then you should follow-up with the primary care doctor. If you have uncontrollable pain, fever or nausea then you should return to the nearest ER. All discharge instructions reviewed with patient and/or family. Voiced understanding. Scripts Ondansetron (Ondansetron Odt) 4 Mg Tab.rapdis 4 MG PO Q6H PRN for NAUSEA/VOMITING, #12 TAB 0 Refills Prov: MAHAD SIN 09/15/19 Work/School Note: Work Release Form Date Seen in the Emergency Department: Sep 15, 2019 Return to Work: Sep 17, 2019 Restrictions: No Restrictions MAHAD SIN Sep 15, 2019 09:46
[2019-09-15] MEDS ORDERED: NS IV 1000 ML 1,000 ML IV SCH (09:51)
[2019-09-15 10:10] LABS: BILIRUBIN,URINE NEGATIVE (NEGATIVE); CLARITY,URINE CLEAR; COLOR,URINE YELLOW; GLUCOSE, URINE (UA) NEGATIVE (NEGATIVE); KETONES,URINE NEGATIVE (NEGATIVE); LEUKOCYTE ESTERASE ,URINE NEGATIVE (NEGATIVE); NITRITE,URINE NEGATIVE (NEGATIVE); PH,URINE 5.5 (5-9); PROTEIN,URINE NEGATIVE (NEGATIVE)
[2019-09-15 10:17] LABS: BASOPHILS % (AUTO) 0 % (0-10); EOSINOPHILS # (AUTO) 0.1 10^3/uL (0.0-0.3); EOSINOPHILS % (AUTO) 1 % (0-10); HEMATOCRIT 44 % (40-54); HEMOGLOBIN 15.4 G/DL (13.3-17.7); LYMPHOCYTES # (AUTO) 1.4 X 10^3 (1.0-4.0); LYMPHOCYTES % (AUTO) 12 % (12-44); MEAN CORPUSCULAR HEMOGLOBIN 31 PG (25-34); MEAN CORPUSCULAR HGB CONC 35 G/DL (32-36); MEAN CORPUSCULAR VOLUME 89 FL (80-99); MEAN PLATELET VOLUME 10.9 FL (7.4-10.4); MONOCYTES # (AUTO) 1.1 X 10^3 (0.0-1.0); MONOCYTES % (AUTO) 9 % (0-12); NEUTROPHILS # (AUTO) 9.3 X 10^3 (1.8-7.8); NEUTROPHILS % (AUTO) 78 % (42-75); PLATELET COUNT 278 10^3/uL (130-400); RED CELL DISTRIBUTION WIDTH 12.6 % (10.0-14.5); WHITE BLOOD COUNT 11.9 10^3/uL (4.3-11.0)
[2019-09-15 10:23] LABS: BACTERIA,URINE NEGATIVE /HPF; RBC,URINE 0-2 /HPF; WBC,URINE RARE /HPF
[2019-09-15 10:42] LABS: ALANINE AMINOTRANSFERASE 23 U/L (0-55); ALBUMIN 4.4 GM/DL (3.2-4.5); ALKALINE PHOSPHATASE 92 U/L (40-136); BILIRUBIN,TOTAL 0.5 MG/DL (0.1-1.0); BUN/CREATININE RATIO 15; CALCIUM 9.4 MG/DL (8.5-10.1); CARBON DIOXIDE 22 MMOL/L (21-32); CHLORIDE 106 MMOL/L (98-107); CREATININE SERUM 0.96 MG/DL (0.60-1.30); GFR ESTIMATED > 60; GLUCOSE 98 MG/DL (70-105); LIPASE 17 U/L (8-78); POTASSIUM 4.3 MMOL/L (3.6-5.0); SODIUM 140 MMOL/L (135-145); TOTAL PROTEIN 7.3 GM/DL (6.4-8.2)
[2019-09-15] MEDS ORDERED: KETOROLAC 30 MG/ML VIAL IVP ONE (10:45)
[2019-09-15] MEDS ORDERED: ONDA4TAB11 PO (10:49)
[2019-09-15] MEDS ORDERED: fentaNYL INJECTION 100 MCG/2 ML AMP IVP ONE (11:30)
[2019-09-15] MEDS ORDERED: HOLD METFORMIN - RECEIVED CONTRAST 20 ML VIAL IV SCH (11:30)
[2019-09-15] MEDS ORDERED: NS 100 ML (IVPB) BAG IV ONE (11:30)
[2019-09-15] MEDS ORDERED: IOHEXOL 350 MG/ML 100 ML (OMNIPAQUE 350) VIAL IV ONE (11:30)
--- NOTE | 2019-09-15 12:33 | NUR ---
PT REPORTS FEELING BETTER AFTER THE FENTENYL.
--- NOTE | 2019-09-15 12:37 | Diagnostic Imaging Report ---
PROCEDURE: CT abdomen and pelvis with contrast. TECHNIQUE: Multiple contiguous axial images were obtained through the abdomen and pelvis after administration of intravenous contrast. Auto Exposure Controls were utilized during the CT exam to meet ALARA standards for radiation dose reduction. INDICATION: Left upper quadrant pain and diarrhea Lung bases are clear. Liver appears normal. Gallbladder is present. Pancreas is normal. Spleen is not enlarged. Kidneys and adrenals appear normal. Large and small small intestine appear normal. The appendix is normal. There is no intraperitoneal free air or free fluid. Urinary bladder is normal. IMPRESSION: Negative CT abdomen and pelvis Dictated by: Dictated on workstation # [id number]
[2019-09-15 12:51] VITALS: BP 132/88
== END 2019-09-15 12:51 | disposition home or self-care (01) ==
LOC: EDUNIT# 09:29 → ER 09:30
DX: A08.4 Viral intestinal infection, unspecified (principal); F17.210 Nicotine dependence, cigarettes, uncomplicated; F17.290 Nicotine dependence, other tobacco product, uncomplicated
CPT/HCPCS: 36415; 74177; 80053; 81000; 83690; 85025; 86141

== ENCOUNTER 2020-02-29 08:12 | Emergency (ER) | payer BC ==
[~2020-02-29] VITALS: Ht 182.8 cm; Wt 95.0 kg
[~2020-02-29 08:12] MED LIST changes: +ONDA4TAB11 PO
--- NOTE | 2020-02-29 08:40 | ED Back Pain ---
General Stated Complaint: LOWER BACK SPASMS Source of Information: Patient Exam Limitations: No Limitations (MAHAD SIN) History of Present Illness Date Seen by Provider: Feb 29, 2020 Time Seen by Provider: 08:29 Initial Comments Archie Fenton is a 34 year old male seen due to chief complaint of low back pain. He describes the pain as a spasm that radiates up his L flank. Began yesterday while at work and worsened throughout the day, Tylenol, (MAHAD SIN) Initial Comments icy hot did not improve pain. Reports he had L5-S1 herniation diagnosed 6 months ago, saw Dr. Mehta and elected not to pursue surgical treatment. Has not had significant muscle spasms since then until now, has had muscle spasms in the past that responded to muscle relaxants. Denies having any issues with muscle weakness, urinary or bowel incontinence, numbness, or tingling. He has had shooting pains down his legs, but this is a chronic problem. Location: Lumbar Spine Timing/Duration: 1 Day Severity: Mild Pain/Injury Location: Back Radiation: Other (left flank) Associated Symptoms: muscle spasms; No weakness, No numbness in legs/feet, No tingling in legs/feet, No sensory/motor loss; lower back pain; No loss of bladder control, No loss of bowel control (ROMA LEE STUDENT) Allergies and Home Medications Allergies Coded Allergies: No Known Drug Allergies (Unverified , 06/04/11) Home Medications Cyclobenzaprine HCl 10 Mg Tablet, 10 MG PO Q8H PRN for SPASMS Prescribed by: MAHAD SIN on 02/29/20 0845 Naproxen 500 Mg Tablet, 500 MG PO BID Prescribed by: MAHAD SIN on 02/29/20 0845 Ondansetron 4 Mg Tab.rapdis, 4 MG PO Q6H PRN for NAUSEA/VOMITING Prescribed by: MAHAD SIN on 09/15/19 1049 Patient Home Medication List Home Medication List Reviewed: Yes (MAHAD SIN) Review of Systems Constitutional: No chills, No diaphoresis EENTM: No hearing loss, No ear pain Respiratory: No cough, No short of breath Cardiovascular: No chest pain, No Hx of Intervention Gastrointestinal: No abdominal pain, No nausea, No vomiting (MAHAD SIN) Genitourinary: No incontinence, No pain Musculoskeletal: back pain, muscle pain Psychiatric/Neurological: Denies Numbness, Denies Paresthesia, Denies Tingling, Denies Weakness (ROMA LEE) All Other Systems Reviewed Negative Unless Noted: Yes (MAHAD SIN) Past Flsodzi-Nebcxe-Maagkf Hx Patient Social History Type Used: Cigarettes, Smokeless Tobacco 2nd Hand Smoke Exposure: Yes Recent Hopitalizations: No (MAHAD SIN) Alcohol Use: Denies Use Smoking Status: Current Everyday Smoker Type Used: Cigarettes (1/2 ppd) (ROMA LEE) Immunizations Up To Date Tetanus Booster (TDap): Less than 5yrs PED Vaccines UTD: Yes Date of Influenza Vaccine: Mar 28, 2012 (MAHAD SIN) Seasonal Allergies Seasonal Allergies: No (MAHAD SIN) Past Medical History Surgeries: Yes (L5-S1) Orthopedic Respiratory: No Cardiac: No Neurological: No Reproductive Disorders: No Sexually Transmitted Disease: No HIV/AIDS: No Genitourinary: No Gastrointestinal: No Musculoskeletal: Yes (R ANKLE) Chronic Back Pain, Fractures Endocrine: No HEENT: No Cancer: No Psychosocial: No Integumentary: No Blood Disorders: No Adverse Reaction/Blood Tranf: No (MAHAD SIN) Orthopedic Back Injury, Chronic Back Pain (ROMA LEE) Family Medical History No Pertinent Family Hx (MAHAD SIN) Physical Exam Vital Signs Capillary Refill : (MAHAD SIN) Height, Weight, BMI Height: 6'0" Weight: 230lbs. oz. [id number]; 29.00 BMI Method:Stated Gastrointestinal: Normal Bowel Sounds, Non Tender Back: No Vertebral Tenderness, Muscle Spasm (R lumbago) Neurologic/Psychiatric: No Motor/Sensory Deficits (MAHAD SIN) General Appearance: No Apparent Distress, WD/WN Neck: Full Range of Motion Back: Normal Inspection Neurologic/Psychiatric: Alert, Oriented x3, Normal Mood/Affect Skin: Normal Color (ROMA LEE) Progress/Results/Core Measures Results/Orders Medications Given in ED Current Medications Medications Dose Ordered Sig/Lamine Route Start Time Stop Time Status Last Admin Dose Admin Ketorolac Tromethamine 60 mg ONCE ONCE IM 02/29/20 08:45 8/4/20 08:46 DC 02/29/20 08:47 60 MG Orphenadrine Citrate 60 mg ONCE ONCE IM 02/29/20 08:45 02/29/20 08:46 DC 02/29/20 08:47 60 MG (ROMA LEE MED STUDENT) Progress Progress Note : Time: 08:42 Progress Note IM Toradol and Norflex. Put him out on some muscle relaxants, back brace and conservative counseling. If not seeing improvement in 1 week or recommend he follow up with Dr. MEHTA for physical therapy. I attest that I saw this patient alongside the medical student and agree with his documented history, physical exam and review of systems except as otherwise noted. (MAHAD SIN) Departure Impression Primary Impression: Lumbago Qualified Codes: M54.5 - Low back pain Disposition: HOME, SELF-CARE Condition: Stable Departure-Patient Inst. Decision time for Depature: 08:36 (MAHAD SIN) Referrals: AKBAR MEHTA MD NO,LOCAL PHYSICIAN (PCP) Primary Care Physician Patient Instructions: Low Back Pain (DC) Add. Discharge Instructions: Obtain a back brace and wear it on the days that helps. Heating pads as well as topical creams such as icy hot, Biofreeze or creams with capsaicin. Tylenol 1000 mg every 8 hours as necessary for pain. Naproxen 500 mg twice a day on a scheduled basis for the next 2 weeks. Do not mix ibuprofen with naproxen. Flexeril one tablet every 8 hours as necessary for muscle spasms. Will cause drowsiness and should not be mixed with alcohol. If you're not seeing significant improvement in 1-2 weeks then you need to follow-up with Dr. Mehta or your primary care doctor discussed the next step in management. Return to the ER immediately if you begin to have inability to walk, numbness or loss of control of your bowel or bladder. Scripts Cyclobenzaprine HCl (Cyclobenzaprine HCl) 10 Mg Tablet 10 MG PO Q8H PRN for SPASMS, #20 TAB 0 Refills Prov: MAHAD SIN 02/29/20 Naproxen (Naprosyn) 500 Mg Tablet 500 MG PO BID, #30 TAB 0 Refills Prov: MAHAD SIN 02/29/20 Work/School Note: Work Release Form Date Seen in the Emergency Department: Feb 29, 2020 Return to Work: Mar 01, 2020 Restrictions: Need Release from Doctor Other Restrictions Listed Below: Do not lift, push, pull greater than 20 pounds until 03/07/20. MAHAD SIN Feb 29, 2020 08:40 ROMA LEE MED STUDENT Feb 29, 2020 08:54
[2020-02-29] MEDS ORDERED: NAPR-1071 PO (08:45)
[2020-02-29] MEDS ORDERED: ORPHENADRINE 60 MG/2 ML (NORFLEX) AMP (ED ONLY) IM ONE (08:45)
[2020-02-29] MEDS ORDERED: CYCL10TA9 PO (08:45)
[2020-02-29] MEDS ORDERED: KETOROLAC 60 MG/2 ML VIAL IM ONE (08:45)
[2020-02-29 09:07] VITALS: BP 111/65
== END 2020-02-29 09:06 | disposition home or self-care (01) ==
LOC: EDUNIT# 08:12 → ER 08:14
DX: M54.5 Low back pain (principal); F17.210 Nicotine dependence, cigarettes, uncomplicated
CPT/HCPCS: 99284